=== PATIENT | female | born 1935 | race Caucasian/White ===

== ENCOUNTER → 2018-01-09 | Outpatient (CLI) | payer MEDICARE, OTHER ==
[~2018-01-09] MED LIST: ASCO-182 PO; CYAN500T38 PO; MULT1CAP59 PO; NONE CURRENT; OMEP-218 PO; PREMARIN
== END ==
LOC: LAB 09:15
PROVIDERS: ATTEND Nurse Practitioner Family
DX: R73.9 Hyperglycemia, unspecified (principal); R19.6 Halitosis; R53.83 Other fatigue
CPT/HCPCS: 36415; 82040; 82247; 82310; 82374; 82435; 82565; 82947; 83036; 84075; 84132; 84155; 84295; 84443; 84450; 84460; 84520

== ENCOUNTER → 2018-02-14 | Outpatient (CLI) | payer MEDICARE, OTHER ==
--- NOTE | 2018-02-14 15:33 | RADIOLOGY IMAGING REPORT ---
FACILITY: [facility] PATIENT NAME: ALVARADO GONZALEZ : [id number] MR: [id number] V: [id number] EXAM DATE: [id number] ORDERING PHYSICIAN: PRESLEY DAVE TECHNOLOGIST: Nguyen Marino PROCEDURE:BILATERAL DIGITAL SCREENING MAMMOGRAM WITH CAD ASSISTED INTERPRETATION & 3D TOMOSYNTHESIS COMPARISON:Prior mammograms 12/19/16, 11/30/15, 11/04/14, 08/17/13, 07/29/12, 07/07/11 INDICATIONS:SCREENING FINDINGS: A small amount of fibroglandular tissue is seen throughout the breasts. The parenchymal pattern has remained stable allowing for difference in mammographic technique & patient positioning. There is no evidence of malignant appearing mass, malignant appearing calcifications or other secondary sign of malignancy in either breast. DIAGNOSTIC CATEGORY 1--NEGATIVE. RECOMMENDATIONS: ROUTINE MAMMOGRAM AND CLINICAL EVALUATION. IMPRESSION: BIRADS 1: Negative No significant abnormality is seen. Dictated by: Consuelo Mcclellan M.D. on 02/14/2018 at 15:25 Transcribed by: AYAAN on 02/14/2018 at 15:30 Approved by: Consuelo Mcclellan M.D. on 02/14/2018 at 15:32 [facility]
== END ==
LOC: MAMO 00:17
PROVIDERS: ATTEND Nurse Practitioner Family
DX: Z12.31 Encounter for screening mammogram for malignant neoplasm of breast (principal)
CPT/HCPCS: 77063; 77067

== ENCOUNTER → 2019-01-14 | Outpatient (CLI) | payer MEDICARE, OTHER ==
[2019-01-14 10:52] LABS: PLATELET COUNT, AUTOMATED 174 K/uL (150-450)
== END ==
LOC: LAB 10:34
PROVIDERS: ATTEND Nurse Practitioner Family
DX: R73.9 Hyperglycemia, unspecified (principal); I10 Essential (primary) hypertension; R53.83 Other fatigue; M19.90 Unspecified osteoarthritis, unspecified site; E55.9 Vitamin D deficiency, unspecified
CPT/HCPCS: 36415; 82040; 82247; 82306; 82310; 82374; 82435; 82565; 82947; 83036; 84075; 84132; 84155; 84295; 84443; 84450; 84460; 84520; 85025

== ENCOUNTER → 2019-01-16 | Outpatient (CLI) | payer MEDICARE, OTHER | LOC: US 01:12 | PROVIDERS: ATTEND Nurse Practitioner Family | DX: I51.7 Cardiomegaly (principal) | CPT/HCPCS: 93306 ==

== ENCOUNTER → 2019-03-23 | Outpatient (CLI) | payer MEDICARE, OTHER ==
--- NOTE | 2019-03-24 16:44 | RADIOLOGY IMAGING REPORT ---
FACILITY: [facility] [place] PATIENT NAME: ALVARADO GONZALEZ : [id number] MR: [id number] V: [id number] EXAM DATE: [id number] ORDERING PHYSICIAN: PRESLEY DAVE TECHNOLOGIST: Shanae Ochoa PROCEDURE:BILATERAL DIGITAL SCREENING MAMMOGRAM WITH CAD ASSISTED INTERPRETATION & 3D TOMOSYNTHESIS COMPARISON:Prior mammograms 02/14/18, 12/19/16, 11/30/15, 11/04/14, 08/17/13, 07/29/12. INDICATIONS:screening FINDINGS: There are scattered areas of fibroglandular density throughout the breasts. The parenchymal pattern has remained stable allowing for difference in mammographic technique & patient positioning. DIAGNOSTIC CATEGORY 1--NEGATIVE. RECOMMENDATIONS: ROUTINE MAMMOGRAM AND CLINICAL EVALUATION. IMPRESSION: BIRADS 1: Negative. No significant abnormality is seen. Dictated by: Consuelo Mcclellan M.D. on 03/23/2019 at 17:45 Transcribed by: AYAAN on 03/24/2019 at 10:14 Approved by: Consuelo Mcclellan M.D. on 03/24/2019 at 16:42 [facility]
== END ==
LOC: MAMO 00:13
PROVIDERS: ATTEND Nurse Practitioner Family
DX: Z12.31 Encounter for screening mammogram for malignant neoplasm of breast (principal)
CPT/HCPCS: 77063; 77067